=== PATIENT | female | born 1960 | race Two or more races ===

== ENCOUNTER 2022-07-27 18:48 | Inpatient (IN) | payer OTHER ==
[~2022-07-27] VITALS: Ht 162.6 cm; Wt 90.7 kg
--- NOTE | 2022-07-27 19:14 | NUR ---
PACIENTE CON DIAGNOSTICADA CON COPD, OXIGENODEPENDIENTE, REFIERE HABERSE REALIZADO DODS PRUEBAS CASERAS DE COVID DANDO POSITIVO A AMBAS, PENA ESTADO CON FAMILIARES CON COVID. REFIERE MICK DOLOR EN TODO EL CUERPO, CON EPISODIOS DE TOS PRODUCTIVA, AFEBRIL AL MOMENTO. DEXT. 199 MD/DL.SE LE REALIZA EKG. Y SE UBICA EN OBSERVACION 14 PENDIENTE EVALUACION MEDICA.
--- NOTE | 2022-07-27 20:10 | NUR ---
SE ORIENTA PTE SOBRE TX MEDICO EL CUAL REFIERE ENTENDER,SE LE EXTRAEN MUESTRAS BAJO MEDIDAS ASEPTICAS,SE ADMINISTRA MEDICAMENTO KASSIE ORDEN MEDICA,SE NOTIFICAN ABG A MR PENG DE TERAPIA RESP.
--- NOTE | 2022-07-27 22:29 | NUR ---
SE CANALIZA BAJO MEDIDAS ASEPTICAS,SE ADMINISTRA MEDICAMENTO KASSIE ORDEN MEDICA,SE NOTIFICAN TERAPIAS RESP A MR PENG.
--- NOTE | 2022-07-27 23:45 | NUR ---
PACIENTE ALERTA Y ORIENTADA X3. EN POSICION SEMI-SENTADA EN CAMA CON BARANDAS ELEVADAS EN AREA DE AISLAMIENTO POR COVID-19. IV FLUID PATENTE Y SHIVAM DE EDEMA Y ERITEMA. PACIENTE RECIBIENDO OXIGENO POR VENTURY MASK AL 35%. CONECTADA A MONITOR CARDIACO Y OCIMETRIA DE PULSO. SE MANTIENE BAJO OBSERVACION POR CAMBIOS SIGNIFICATIVOS.
--- NOTE | 2022-07-28 03:30 | NUR ---
PTE ALERTA ORIENTADA X 3 EN CAMA CON BARANDAS ELEVADAS POR DE SANTIAGO SEGURIDAD,CAMA A 45 GRADOS CON TIMBRE ABCCESIBLE.CONECTADA A MONITOR CARDIACO HR-86(SINUSAL), CANULA NASAL A 3LPM SAT-95%,R-25.VENOPUNCION CON EDEMA SE D/C. SE MAXI VENOPUNCION EN MANO IZQUIERDA CON ANGIO #20 PATENTE SHIVAM DE EDEMA Y ERITEMA RECIBIENDO 0.9 NSS BAJANDO A 56ML/HR.SE OBSERVA RESPIRACIONES UTILIZANDO LOS MUSCULOS ABCCESORIOS.ABDOMEN DEPRESIBLE CON PERISTALSIS PRESENTE AL MOMENTO.NO SE OBSERVA EDEMA EN EXTREMIDADES SUPERIORES E INFERIORES.SE ORIENTA PACIENTE Y FAMILIAR SOBRE TX MEDICO Y VISITAS RESTRINGIDAS POR SER UNIDAD DE CHEST PAIN.SE ORIENTA FAMILIAR SOBRE LAS PERTENENCIAS NECESARIAS PARA DE SANTIAGO ESTADIA EN [facility]. 04:25 AM PERSONAL DE TERAPIA RESPIRATORIA ADMINISTRA [place] MEDICO. 05:00 AM SE OBSERVA PTE DURMIENTO TRANQUILA CON S/V ESTABLES AL MOMENTO.
--- NOTE | 2022-07-28 07:00 | NUR ---
SE RECIBE PACIENTE FEMENINA ALERTA Y ORIENTADA X3, CAMA #18 CON BARRANDAS ELEVADAS. CONECTADA A MONITOR CARDIACO Y OXIMETRIA DE PULSO. AREA DE VENOPUNCION EN BRAZO CHRISSY CANALIZADA CON ANGIO #20 CON 0.9 NSS 1,000 BAJANDO A 56ML/HR Y EN BRAZO DERECHO CON ANGIO #22 CON S/L PATENTE SHIVAM DE EDEMA Y ENROJECIMIENTO. PENDIENTE CONSULTA CON DR. BELLA. SE LE JUAREZ EN TODO MOMENTO PRIVACIDAD Y SEGURIDAD Y SE OBSERVA POR CAMBIOS.
== END 2022-08-09 23:03 | disposition home or self-care (01) | DRG 178 ==
LOC: ER 18:48 → MEDJ 07-28 08:18 → SEC-K 07-28 08:18 → MEDJ 07-28 08:40
PROVIDERS: ADMIT Internal Medicine; ATTEND Internal Medicine
PROC: B244ZZZ Ultrasonography of Right Heart (ICD-10-PCS; 2022-07-27)
PROC: 3E0F7GC Introduction of Other Therapeutic Substance into Respiratory Tract, Via Natural or Artificial Opening (ICD-10-PCS; principal; 2022-07-28)
PROC: 4A033R1 Measurement of Arterial Saturation, Peripheral, Percutaneous Approach (ICD-10-PCS; 2022-07-28)
PROC: 4A12X4Z Monitoring of Cardiac Electrical Activity, External Approach (ICD-10-PCS; 2022-07-28)
PROC: 8E0ZXY6 Isolation (ICD-10-PCS; 2022-07-28)
PROC: XW033E5 Introduction of Remdesivir Anti-infective into Peripheral Vein, Percutaneous Approach, New Technology Group 5 (ICD-10-PCS; 2022-07-28)
DX: U07.1 COVID-19 (principal); J44.1 Chronic obstructive pulmonary disease with (acute) exacerbation; J98.01 Acute bronchospasm; I50.9 Heart failure, unspecified

== ENCOUNTER 2023-03-29 19:42 | Inpatient (IN) | payer OTHER ==
[~2023-03-29] VITALS: Ht 152.4 cm; Wt 95.3 kg
[2023-03-29] MEDS ORDERED: COREG CR20 MG (19:58)
[2023-03-29] MEDS ORDERED: SIMVASTATIN5 MG (19:58)
[2023-03-29] MEDS ORDERED: LOSARTAN POTASSI1 GM (19:58)
[2023-03-29] MEDS ORDERED: PLAVIX75 MG (19:58)
[2023-03-29] MEDS ORDERED: LASIX40 MG (19:59)
[2023-03-29] MEDS ORDERED: NIFEDIPINE20 MG (19:59)
[2023-03-29] MEDS ORDERED: NEURONTIN600 M1 (19:59)
[2023-03-29] MEDS ORDERED: ADULT LOW DOSE81 M1 (19:59)
[2023-03-29] MEDS ORDERED: SINGULAIR4 M1 (19:59)
[2023-03-29] MEDS ORDERED: LIPITOR40 M1 (19:59)
--- NOTE | 2023-03-29 20:00 | NUR ---
SE RECIBE PTE ALERTA Y ORIENTADA X3 LA CUAL REFIERE VENIR POR SOB DESDE HACE 4 GUERRA. PTE REFIERE PADECER DE COPD Y LA MISMA UTILIZA OXIGENO CONTINUO. SE MIDEN S/V A PTE, PTE SATURANDO 82%. PTE SE COLOCA EN LEX Y SE NOTIFICA A MD.
--- NOTE | 2023-03-29 21:10 | NUR ---
SE EDUCA A PTE SOBRE TX MEDICO ESTA REFIERE ENTENDER, SE TALI MUESTRAS DE LABORATORIO UTILIZANDO MEDIDAS ASEPTICAS, SE COLOCA H/L X2 EN BRAZO RT LIBRES DE EDEMA. SE ADMINISTRA MEDICAMENTO EL CUAL TOLERA, SE NOTIFICAN ABGS Y TERAPIAS PENDIENTES. SE NOTIFICA ESTUDIO DE RX PENDIENTE. SE COLOCA SOLANO UTILIZANDO MEDIDAS ESTERILES. PTE SE CONTINUA MONITORIANDO POR CAMBIOS.
== END 2023-04-04 19:36 | disposition home or self-care (01) | DRG 191 ==
LOC: ER 19:42 → ICU-2 22:44 → ICU 22:44 → MEDJ 04-03 02:20
PROVIDERS: ADMIT Internal Medicine; ATTEND Internal Medicine
PROC: BW24YZZ Computerized Tomography (CT Scan) of Chest and Abdomen using Other Contrast (ICD-10-PCS; principal; 2023-03-29)
PROC: B54DZZZ Ultrasonography of Bilateral Lower Extremity Veins (ICD-10-PCS; 2023-03-29)
PROC: B24BZZZ Ultrasonography of Heart with Aorta (ICD-10-PCS; 2023-03-30)
PROC: 30233N1 Transfusion of Nonautologous Red Blood Cells into Peripheral Vein, Percutaneous Approach (ICD-10-PCS; 2023-03-30)
PROC: 4A12X4Z Monitoring of Cardiac Electrical Activity, External Approach (ICD-10-PCS; 2023-04-03)
DX: J44.1 Chronic obstructive pulmonary disease with (acute) exacerbation (principal); I50.30 Unspecified diastolic (congestive) heart failure; K92.2 Gastrointestinal hemorrhage, unspecified; D50.0 Iron deficiency anemia secondary to blood loss (chronic); I11.0 Hypertensive heart disease with heart failure; R09.02 Hypoxemia; I25.10 Atherosclerotic heart disease of native coronary artery without angina pectoris; E11.9 Type 2 diabetes mellitus without complications; Z79.4 Long term (current) use of insulin; E66.01 Morbid (severe) obesity due to excess calories; J84.10 Pulmonary fibrosis, unspecified; Z86.711 Personal history of pulmonary embolism; Z79.01 Long term (current) use of anticoagulants

== ENCOUNTER 2023-09-13 15:43 | Inpatient (IN) | payer OTHER ==
[~2023-09-13] VITALS: Ht 160 cm; Wt 98.0 kg
[~2023-09-13 15:43] MED LIST: ADULT LOW DOSE81 M1; COREG CR20 MG; LASIX40 MG; LIPITOR40 M1; LOSARTAN POTASSI1 GM; NEURONTIN600 M1; NIFEDIPINE20 MG; PLAVIX75 MG; SIMVASTATIN5 MG; SINGULAIR4 M1
[2023-09-13 16:30] LABS: MEAN CELL VOLUME 78.7 fL (80.00-100.00); MEAN CORPUSCULAR HGB CONC 30.3 g/dl (32.0-36.0); PLATELET COUNT 516 K/uL (150-450); RED BLOOD COUNT 2.97 M/uL (4.00-6.00); RED CELL DISTRIBUTION WIDTH 17.7 % (11.5-14.5)
[2023-09-13 16:31] LABS: MEAN CORPUSCULAR HEMOGLOBIN 23.9 pg (27.00-32.0)
[2023-09-13 16:33] LABS: HEMOGLOBIN 7.1 g/dL (12.0-15.00)
[2023-09-13 16:34] LABS: HEMATOCRIT 23.3 % (36.0-45.00)
[2023-09-13 16:40] LABS: ABG PH 7.422 (7.35-7.45)
[2023-09-13 16:41] LABS: ABG PO2 38.7 mmHg (80-100); ABG pCO2 60.5 mmHg (35-45); BASE EXCESS 11.3 mmol/l; SaO2 76.3 %
[2023-09-13 16:42] LABS: BICARBONATE 38.5 mmol/l (23-25); Tco2 40.4 mmol/l; allen test SATISFACTORY; o2 21 %; puncture site RADIAL RIGHT
[2023-09-13 16:52] LABS: INR 0.95; PARTIAL THROMBOPLASTIN TIME 21.9 SECONDS (22.0-34.0)
[2023-09-13 16:56] LABS: ALBUMIN 3.1 gm/dL (3.4-5.0); BILIRUBIN TOTAL 0.29 mg/dL (0.3-1.2); CALCIUM 8.9 mg/dL (8.5-10.1); CREATININE SERUM 0.86 mg/dL (0.55-1.02); GFR 66.43; GLOBULINA 3.5 G/DL (2.4-3.5); TOTAL PROTEIN 6.6 gm/dL (6.4-8.2)
[2023-09-13 18:53] LABS: ABG PH 7.423 (7.35-7.45); ABG pCO2 59.4 mmHg (35-45)
[2023-09-13 18:54] LABS: ABG PO2 36.4 mmHg (80-100); BASE EXCESS 10.9 mmol/l; BICARBONATE 37.9 mmol/l (23-25); Tco2 39.8 mmol/l; o2 80 %
[2023-09-13 18:55] LABS: allen test SATISFACTORY; puncture site RADIAL LEFT
[2023-09-13 18:55] LABS: ABG PH 7.393 (7.35-7.45)
[2023-09-13 18:56] LABS: ABG pCO2 65.2 mmHg (35-45); BASE EXCESS 10.9 mmol/l; BICARBONATE 38.9 mmol/l (23-25); SaO2 86.6 %; Tco2 40.9 mmol/l
[2023-09-13 18:57] LABS: allen test SATISFACTORY; o2 80 %; puncture site RADIAL LEFT
[2023-09-13 18:58] LABS: PH,URINE 6.5 (5.0-8.0); URINE APPEARANCE Clear; URINE BILIRRUBIN Negative (NEGATIVE); URINE BLOOD Negative; URINE COLOR Yellow; URINE LEUKOCYTE Negative; URINE NITRATE Negative; URINE PROTEIN Trace (NEGATIVE); URINE UROBILINOGEN 0.2 E.U./dl
[2023-09-13 19:01] LABS: URINE BACTERIA 158.6 uL (0.0-1933); URINE EPITHELIAL CELLS 6.4 uL (0.0-38.8); URINE WBC 17.1 uL (0.0-23.2)
[2023-09-13 19:10] LABS: D DIMER 0.27 MG/L; INR 0.96; PARTIAL THROMBOPLASTIN TIME 24.2 SECONDS (22.0-34.0); PROTHROMBIN TIME 10.1 SECONDS (9.0-11.5)
[2023-09-13 19:20] LABS: URINE GLUCOSE >=1000 MG/DL (NEGATIVE); URINE RBC 1.7 uL (0.0-20.8)
[2023-09-13 19:48] LABS: ABG PH 7.366 (7.35-7.45); ABG PO2 73.9 mmHg (80-100); ABG pCO2 66.6 mmHg (35-45)
[2023-09-13 19:49] LABS: BASE EXCESS 9.31 mmol/l; BICARBONATE 37.3 mmol/l (23-25); SaO2 94.5 %; Tco2 39.3 mmol/l; allen test SATISFACTORY; o2 100 %; puncture site RADIAL RIGHT
[2023-09-15 08:04] LABS: PH,URINE 5.5 (5.0-8.0); URINE APPEARANCE Clear; URINE BILIRRUBIN Negative (NEGATIVE); URINE BLOOD Negative; URINE COLOR Yellow; URINE GLUCOSE Negative (NEGATIVE); URINE LEUKOCYTE Trace; URINE NITRATE Negative; URINE PROTEIN 30 (NEGATIVE)
[2023-09-15 08:06] LABS: URINE BACTERIA 50.3 uL (0.0-1933); URINE EPITHELIAL CELLS 18.3 uL (0.0-38.8); URINE RBC 14.8 uL (0.0-20.8); URINE WBC 60.9 uL (0.0-23.2)
[2023-09-15 18:53] LABS: HEMATOCRIT 32.2 % (36.0-45.00); HEMOGLOBIN 10.2 g/dL (12.0-15.00); MEAN CELL VOLUME 81.8 fL (80.00-100.00); MEAN CORPUSCULAR HEMOGLOBIN 25.9 pg (27.00-32.0); MEAN CORPUSCULAR HGB CONC 31.7 g/dl (32.0-36.0); PLATELET COUNT 487 K/uL (150-450); RED BLOOD COUNT 3.94 M/uL (4.00-6.00)
[2023-09-15 19:29] LABS: BILIRUBIN TOTAL 0.38 mg/dL (0.3-1.2); CALCIUM 8.9 mg/dL (8.5-10.1); CREATININE SERUM 0.65 mg/dL (0.55-1.02); GFR 91.76; GLOBULINA 3.6 G/DL (2.4-3.5); POTASSIUM 3.96 mEq/L (3.5-5.1); TOTAL PROTEIN 6.6 gm/dL (6.4-8.2); TSH 1.15 uIU/mL (0.358-3.74)
[2023-09-19 12:15] LABS: HEMATOCRIT 32.8 % (36.0-45.00); HEMOGLOBIN 10.4 g/dL (12.0-15.00); MEAN CELL VOLUME 81.5 fL (80.00-100.00); MEAN CORPUSCULAR HEMOGLOBIN 25.7 pg (27.00-32.0); MEAN CORPUSCULAR HGB CONC 31.5 g/dl (32.0-36.0); PLATELET COUNT 412 K/uL (150-450); RED BLOOD COUNT 4.03 M/uL (4.00-6.00); RED CELL DISTRIBUTION WIDTH 19.4 % (11.5-14.5)
[2023-09-19 12:38] LABS: ALBUMIN 2.9 gm/dL (3.4-5.0); BILIRUBIN TOTAL 0.3 mg/dL (0.3-1.2); CALCIUM 8.4 mg/dL (8.5-10.1); CREATININE SERUM 0.62 mg/dL (0.55-1.02); GFR 96.91; GLOBULINA 3.2 G/DL (2.4-3.5); POTASSIUM 3.5 mEq/L (3.5-5.1); TOTAL PROTEIN 6.1 gm/dL (6.4-8.2)
[2023-09-19 13:26] LABS: ABG PH 7.405 (7.35-7.45); ABG PO2 71.7 mmHg (80-100); BASE EXCESS 9.9 mmol/l; SaO2 94.7 %
[2023-09-19 13:27] LABS: ABG pCO2 60.7 mmHg (35-45); BICARBONATE 37.2 mmol/l (23-25); Tco2 39.1 mmol/l; allen test SATISFACTORY; o2 36 %; puncture site RADIAL LEFT
[2023-09-20 14:07] LABS: ABG PH 7.413 (7.35-7.45); ABG PO2 48.6 mmHg (80-100); ABG pCO2 61.8 mmHg (35-45); BASE EXCESS 11.2 mmol/l; BICARBONATE 38.6 mmol/l (23-25); SaO2 85.8 %; Tco2 40.5 mmol/l
[2023-09-20 14:08] LABS: allen test SATISFACTORY; o2 21 %; puncture site RADIAL RIGHT
== END 2023-09-21 16:10 | disposition home or self-care (01) | DRG 812 ==
LOC: ER 15:44 → ICU 18:12 → MEDJ 09-18 12:47
PROVIDERS: Emergency Medicine; General Practice; Internal Medicine; Internal Medicine Endocrinology, Diabetes & Metabolism; Internal Medicine Infectious Disease; ADMIT Internal Medicine; ATTEND Internal Medicine
PROC: BW21ZZZ Computerized Tomography (CT Scan) of Abdomen and Pelvis (ICD-10-PCS; 2023-09-13)
PROC: 3E0F7GC Introduction of Other Therapeutic Substance into Respiratory Tract, Via Natural or Artificial Opening (ICD-10-PCS; 2023-09-13)
PROC: 4A12X4Z Monitoring of Cardiac Electrical Activity, External Approach (ICD-10-PCS; 2023-09-13)
PROC: 5A09457 Assistance with Respiratory Ventilation, 24-96 Consecutive Hours, Continuous Positive Airway Pressure (ICD-10-PCS; 2023-09-13)
PROC: 30233N1 Transfusion of Nonautologous Red Blood Cells into Peripheral Vein, Percutaneous Approach (ICD-10-PCS; principal; 2023-09-14)
PROC: B246ZZZ Ultrasonography of Right and Left Heart (ICD-10-PCS; 2023-09-14)
PROC: 02HV33Z Insertion of Infusion Device into Superior Vena Cava, Percutaneous Approach (ICD-10-PCS; 2023-09-16)
DX: D64.89 Other specified anemias (principal); J44.1 Chronic obstructive pulmonary disease with (acute) exacerbation; J96.12 Chronic respiratory failure with hypercapnia; K92.2 Gastrointestinal hemorrhage, unspecified; I11.0 Hypertensive heart disease with heart failure; I50.9 Heart failure, unspecified; I25.10 Atherosclerotic heart disease of native coronary artery without angina pectoris; J84.10 Pulmonary fibrosis, unspecified; I27.20 Pulmonary hypertension, unspecified; G47.33 Obstructive sleep apnea (adult) (pediatric); E11.65 Type 2 diabetes mellitus with hyperglycemia; Z79.4 Long term (current) use of insulin; Z95.818 Presence of other cardiac implants and grafts; Z87.891 Personal history of nicotine dependence

== ENCOUNTER 2023-11-06 14:58 | Inpatient (IN) | payer OTHER ==
[~2023-11-06] VITALS: Ht 160 cm; Wt 94.3 kg
[2023-11-06 16:38] LABS: ABG PH 7.323 (7.35-7.45)
[2023-11-06 16:39] LABS: BASE EXCESS 6.5 mmol/l; BICARBONATE 35.3 mmol/l (23-25); Tco2 37.4 mmol/l; allen test SATISFACTORY; o2 36 %; puncture site RADIAL RIGHT
[2023-11-06 16:40] LABS: ABG PO2 56.1 mmHg (80-100); ABG pCO2 69.6 mmHg (35-45); SaO2 86.8 %
[2023-11-06 16:43] LABS: MEAN CELL VOLUME 77.9 fL (80.00-100.00); MEAN CORPUSCULAR HGB CONC 30.3 g/dl (32.0-36.0); PLATELET COUNT 443 K/uL (150-450); RED CELL DISTRIBUTION WIDTH 18.1 % (11.5-14.5)
[2023-11-06 16:44] LABS: MEAN CORPUSCULAR HEMOGLOBIN 23.7 pg (27.00-32.0)
[2023-11-06 16:49] LABS: HEMOGLOBIN 7.6 g/dL (12.0-15.00)
[2023-11-06 16:53] LABS: INR 0.94; PARTIAL THROMBOPLASTIN TIME 25.1 SECONDS (22.0-34.0); PROTHROMBIN TIME 9.9 SECONDS (9.0-11.5)
[2023-11-06 16:58] LABS: ALBUMIN 3.2 gm/dL (3.4-5.0); BILIRUBIN TOTAL 0.22 mg/dL (0.3-1.2); CALCIUM 8.4 mg/dL (8.5-10.1); CREATININE SERUM 0.89 mg/dL (0.55-1.02); GFR 63.85; GLOBULINA 4.2 G/DL (2.4-3.5); POTASSIUM 3.9 mEq/L (3.5-5.1); TOTAL PROTEIN 7.4 gm/dL (6.4-8.2)
[2023-11-06 21:01] LABS: PH,URINE 5.5 (5.0-8.0); URINE APPEARANCE Clear; URINE BILIRRUBIN Negative (NEGATIVE); URINE BLOOD Negative; URINE COLOR Yellow; URINE LEUKOCYTE Negative; URINE NITRATE Negative; URINE PROTEIN Negative (NEGATIVE); URINE UROBILINOGEN 0.2 E.U./dl
[2023-11-06 21:09] LABS: URINE BACTERIA 2.5 uL (0.0-1933); URINE EPITHELIAL CELLS 0.6 uL (0.0-38.8); URINE GLUCOSE >=1000 MG/DL (NEGATIVE); URINE RBC 0.1 uL (0.0-20.8); URINE WBC 0.1 uL (0.0-23.2)
[2023-11-06 22:25] LABS: ABG PO2 85.1 mmHg (80-100); ABG pCO2 90.5 mmHg (35-45); BASE EXCESS 9.5 mmol/l; BICARBONATE 40.6 mmol/l (23-25); Tco2 43.4 mmol/l; allen test SATISFACTORY; o2 100 %; puncture site RADIAL RIGHT
[2023-11-07 02:13] LABS: ABG PH 7.277 (7.35-7.45); ABG PO2 169.1 mmHg (80-100); ABG pCO2 87.5 mmHg (35-45); BASE EXCESS 9.2 mmol/l; SaO2 99.3 %; Tco2 42.6 mmol/l
[2023-11-07 02:14] LABS: allen test SATISFACTORY; o2 80 %; puncture site RADIAL RIGHT
[2023-11-07 22:54] LABS: ABG PH 7.301 (7.35-7.45); ABG PO2 88.8 mmHg (80-100); ABG pCO2 97.9 mmHg (35-45); BASE EXCESS 15.4 mmol/l; BICARBONATE 47.2 mmol/l (23-25); SaO2 96.2 %; Tco2 50.2 mmol/l
[2023-11-07 22:55] LABS: allen test NO SATISFACTORY; o2 60 %; puncture site RADIAL RIGHT
[2023-11-07 23:23] LABS: HEMATOCRIT 31.6 % (36.0-45.00); MEAN CELL VOLUME 79.4 fL (80.00-100.00); MEAN CORPUSCULAR HGB CONC 31.4 g/dl (32.0-36.0); PLATELET COUNT 424 K/uL (150-450); RED BLOOD COUNT 3.98 M/uL (4.00-6.00); RED CELL DISTRIBUTION WIDTH 18.2 % (11.5-14.5)
[2023-11-07 23:28] LABS: HEMOGLOBIN 9.9 g/dL (12.0-15.00); MEAN CORPUSCULAR HEMOGLOBIN 24.8 pg (27.00-32.0)
[2023-11-08 16:38] LABS: T4 TOTAL 9.87 UG/DL (4.8-13.9)
[2023-11-08 16:39] LABS: TSH 0.315 uIU/mL (0.358-3.74)
[2023-11-10 06:36] LABS: HEMATOCRIT 34.9 % (36.0-45.00); HEMOGLOBIN 11.4 g/dL (12.0-15.00); MEAN CELL VOLUME 77.8 fL (80.00-100.00); MEAN CORPUSCULAR HEMOGLOBIN 25.4 pg (27.00-32.0); MEAN CORPUSCULAR HGB CONC 32.6 g/dl (32.0-36.0); PLATELET COUNT 502 K/uL (150-450); RED BLOOD COUNT 4.48 M/uL (4.00-6.00); RED CELL DISTRIBUTION WIDTH 19.7 % (11.5-14.5)
[2023-11-10 07:19] LABS: ALBUMIN 3.3 gm/dL (3.4-5.0); BILIRUBIN TOTAL 0.44 mg/dL (0.3-1.2); CALCIUM 9.3 mg/dL (8.5-10.1); CREATININE SERUM 0.95 mg/dL (0.55-1.02); GFR 59.22; GLOBULINA 3.8 G/DL (2.4-3.5); POTASSIUM 3.87 mEq/L (3.5-5.1); TOTAL PROTEIN 7.1 gm/dL (6.4-8.2)
[2023-11-13 16:31] LABS: URINE APPEARANCE Clear; URINE BILIRRUBIN Negative (NEGATIVE); URINE BLOOD Negative; URINE COLOR Yellow; URINE LEUKOCYTE Moderate; URINE NITRATE Negative; URINE PROTEIN Trace (NEGATIVE); URINE UROBILINOGEN 0.2 E.U./dl
[2023-11-13 16:34] LABS: URINE BACTERIA 670.2 uL (0.0-1933); URINE EPITHELIAL CELLS 27.9 uL (0.0-38.8); URINE WBC 109.2 uL (0.0-23.2)
[2023-11-13 16:42] LABS: URINE GLUCOSE 250 MG/DL (NEGATIVE)
[2023-11-13 17:58] LABS: ABG PH 7.478 (7.35-7.45); ABG pCO2 53.7 mmHg (35-45)
[2023-11-13 17:59] LABS: ABG PO2 55.5 mmHg (80-100); BASE EXCESS 12.9 mmol/l; BICARBONATE 38.9 mmol/l (23-25); SaO2 91.7 %; Tco2 40.6 mmol/l; allen test SATISFACTORY; o2 21 %; puncture site RADIAL LEFT
== END 2023-11-14 15:23 | disposition home or self-care (01) | DRG 191 ==
LOC: ER 14:59 → ICU-2 19:11 → ICU 11-07 21:01 → MEDJ 11-10 21:43
PROVIDERS: General Practice; Internal Medicine; ADMIT Internal Medicine; ATTEND Internal Medicine
PROC: BW21ZZZ Computerized Tomography (CT Scan) of Abdomen and Pelvis (ICD-10-PCS; principal; 2023-11-06)
PROC: B24BYZZ Ultrasonography of Heart with Aorta using Other Contrast (ICD-10-PCS; 2023-11-06)
PROC: 02HV33Z Insertion of Infusion Device into Superior Vena Cava, Percutaneous Approach (ICD-10-PCS; 2023-11-09)
PROC: 4A12X4Z Monitoring of Cardiac Electrical Activity, External Approach (ICD-10-PCS; 2023-11-10)
DX: J44.1 Chronic obstructive pulmonary disease with (acute) exacerbation (principal); E87.20 Acidosis, unspecified; J90 Pleural effusion, not elsewhere classified; D64.9 Anemia, unspecified; I50.9 Heart failure, unspecified; R06.02 Shortness of breath; E66.01 Morbid (severe) obesity due to excess calories; Z68.36 Body mass index [BMI] 36.0-36.9, adult; E11.9 Type 2 diabetes mellitus without complications; Z79.4 Long term (current) use of insulin; I11.0 Hypertensive heart disease with heart failure